=== PATIENT | male | born 1975 | race Caucasian/White ===

== ENCOUNTER 2021-08-28 18:16 | Inpatient (IN) | payer SELFPAY ==
[2021-08-28 18:26] VITALS: BP 142/98; PULSE 104; RESP 19; TEMP 36.6; O2SAT 97
--- NOTE | 2021-08-28 19:00 | ED.C_ITS ---
HPI - Psych General: Chief Complaint: Psychiatric Symptoms Stated Complaint: SI, ETOH Time Seen by Provider: 08/28/21 18:34 Source: patient and EMS Mode of arrival: EMS Limitations: no limitations History of Present Illness: 46-year-old male is here by EMS at this time with suicidal ideations. He was at a gas station intoxicated yelling and making a scene and had told people there that he wanted to jump off a bridge. Here he is denying anything at this time is difficult to get a history from him because he is not very cooperative and is quite intoxicated at this time. No worsening or improving factors. Associated symptoms: Reports depression Review of Systems Const: Denies: fever(s), chills, body aches or change in appetite Eyes: Denies: blurry vision or eye discomfort ENMT: Denies: throat pain or dental pain Card: Denies: chest pain Resp: Denies: dyspnea GI: Denies: abdominal pain, nausea, vomiting or diarrhea : Denies: dysuria Musc: Denies: neck pain or back pain Skin/Breast: Denies: rash Neuro: Denies: headache(s) Psych: Reports: depression Tye/Lymph: Denies: easy bruising All/Imm: Denies: urticaria Physical Exam Const: COMMON NORMALS: no acute distress, patient oriented x3 and healthy appearing GENERAL APPEARANCE: odor of alcohol detected HENMT: COMMON NORMALS: normocephalic and atraumatic HEAD & SCALP: normocephalic and atraumatic Eye: COMMON NORMALS: Equal, round and reactive pupils present and EOMs intact bilaterally PUPIL: Yes Equal, round and reactive pupils present Neck/C-Spine: COMMON NORMALS: full ROM and supple Chest: COMMONS NORMALS: normal inspection of the chest and normal palpation of entire chest wall Resp: COMMON NORMALS: normal respiratory effort, No retractions, No use of accessory muscles and clear to auscultation bilaterally AUSCULTATION: clear to auscultation bilaterally Cardio: COMMON NORMALS: regular rate, regular rhythm and No murmurs present (Cardio) RATE: regular rate RHYTHM: regular rhythm GI: COMMON NORMALS: Normal to inspection, nondistended, normoactive bowel sounds present, Soft to palpation, non-tender and no masses PALPATION: Yes Soft to palpation Extremity: COMMON NORMALS: normal to inspection and full ROM Neuro: COMMON NORMALS: patient oriented x3, moves all extremities and no focal motor deficits Psych: COMMON NORMALS: mental status grossly normal, Normal thought process present and cooperative THOUGHT PROCESS: Normal thought process present THOUGHT CONTENT: Yes Suicidality present Skin: COMMON NORMALS: no rashes or lesions noted and no wounds GENERAL SKIN EXAM: no rashes or lesions noted Course Vital Signs: Vital signs: Vital Signs Temperature 97.9 F 08/28/21 18:26 Pulse Rate 104 H 08/28/21 18:26 Respiratory Rate 19 H 08/28/21 18:26 Blood Pressure 142/98 08/28/21 18:26 Pulse Oximetry 97 08/28/21 18:26 MDM - Psych Medical Decision Making Patient presents here with suicidal ideation along with alcohol tox Acacian he is a plan to kill himself by jumping off a bridge patient was placed under 96- hour hold I spoke to psychiatrist will admit at this time. He has been stable while here. Lab Data : 08/28/21 20:30 08/28/21 20:30 Laboratory Results WBC 5.3 10^3/uL (4.0-10.0) 08/28/21 20:30 RBC 4.69 10^6/uL (4.1-5.3) 08/28/21 20:30 Hgb 14.9 g/dL (11.7-16.6) 08/28/21 20:30 Hct 44.4 % (42.0-52.0) 08/28/21 20:30 MCV 94.7 fl (80-94) H 08/28/21 20:30 MCH 31.8 pg (28.0-34.0) 08/28/21 20:30 MCHC 33.6 g/dL (30.0-36.0) 08/28/21 20:30 RDW 13.6 % (12.1-15.1) 08/28/21 20:30 Plt Count 238 10^3/cmm (130-400) 08/28/21 20:30 MPV 9.0 fL (7.4-10.4) 08/28/21 20:30 Neut % (Auto) 37.0 % 08/28/21 20:30 Lymph % (Auto) 40.0 % 08/28/21 20:30 Roberts % (Auto) 13.1 % 08/28/21 20:30 Eos % (Auto) 7.0 % 08/28/21 20:30 Baso % (Auto) 2.5 % 08/28/21 20:30 Neut # (Auto) 1.95 10^3/uL (1.8-7.7) 08/28/21 20:30 Lymph # (Auto) 2.1 10^3/uL (0.8-4.8) 08/28/21 20: Roberts # (Auto) 0.7 10^3/uL (0.2-0.9) 08/28/21 20: Eos # (Auto) 0.4 10^3/uL (0.0-0.8) 08/28/21 20: Baso # (Auto) 0.1 10^3/uL (0.0-0.1) 08/28/21: Nucleated RBC % (auto) 0 % 08/28/21: Nucleated RBCs # 0.0 /100WBC 08/28/21 20: Sodium 139 mmol/L (136-145) 08/28/21 20: Potassium 4.1 mmol/L (3.5-5.1) 08/28/21 20: Chloride 103 mmol/L (98-107) 08/28/21 20: Carbon Dioxide 26 mmol/L (22-29) 08/28/21 20:30 Anion Gap 14.1 (5-19) 08/28/21 20:30 BUN 6 mg/dL (6-20) 08/28/21: Creatinine 0.5 mg/dL (0.7-1.2) L 08/28/21 20:30 GFR Calculation 180.6 mL/min (90-130) H 08/28/21 20:30 Glucose 90 mg/dL (65-115) 08/28/21 20: Calculated Osmolality 285 mOsm/kg (285-295) 08/28/21: Calcium 8.5 mg/dL (8.5-10.5) 08/28/21 20:30 Total Bilirubin 0.2 mg/dL (0.15-1.2) 08/28/21 20: AST 100 U/L (0-40) H 08/28/21: ALT 27 U/L (0-41) 08/28/21 20:30 Alkaline Phosphatase 182 IU/L (40-130) H 08/28/21 20:30 Total Protein 7.5 g/dL (6.6-8.7) 08/28/21 20:30 Albumin 4.2 g/dL (3.5-5.2) 08/28/21 20:30 Globulin 3.3 g/dL (1.3-4.6) 08/28/21 20:30 Salicylates < 0.3 mg/dL (3-10) L 08/28/21 20:30 Urine Opiates Screen Negative ng/mL (Negative) 08/28/21 20:30 Acetaminophen < 5.0 ug/mL (10-30) L 08/28/21 20:30 Ur Barbiturates Screen Negative ng/mL (Negative) 08/28/21 20:30 Ur Phencyclidine Scrn Negative ng/mL (Negative) 08/28/21 20:30 Ur Amphetamines Screen Negative ng/mL (Negative) 08/28/21 20:30 U Benzodiazepines Scrn Negative ng/mL (Negative) 08/28/21 20:30 Urine Cocaine Screen Negative ng/mL (Negative) 08/28/21 20:30 U Marijuana (THC) Screen Positive ng/mL (Negative) H 08/28/21 20:30 Ethyl Alcohol 298 mg/dL (0-10) H 08/28/21 22:52 Discharge Plan Discharge Patient Disposition: Admitted As Inpatient Clinical Impression: Suicidal ideation, ETOH abuse Condition: Stable Coding Level of Care Code ED Tripoler for Ant Fwgerald Exam Comprehensive
[2021-08-28 20:41] LABS: Basophils # 0.1 10^3/uL (0.0-0.1); Basophils % 2.5 %; Eosinophils # 0.4 10^3/uL (0.0-0.8); Hematocrit 44.4 % (42.0-52.0); Hemoglobin 14.9 g/dL (11.7-16.6); Lymphocytes # 2.1 10^3/uL (0.8-4.8); Mean Corpuscular HGB Conc 33.6 g/dL (30.0-36.0); Mean Corpuscular Hemoglobin 31.8 pg (28.0-34.0); Mean Corpuscular Volume 94.7 fl (80-94); Monocytes # 0.7 10^3/uL (0.2-0.9); Monocytes % 13.1 %; Neutrophils # 1.95 10^3/uL (1.8-7.7); Nucleated Red Blood Cells % 0 %; Platelet Count 238 10^3/cmm (130-400); Red Blood Count 4.69 10^6/uL (4.1-5.3); Red Cell Distribution Width 13.6 % (12.1-15.1); White Blood Count 5.3 10^3/uL (4.0-10.0)
[2021-08-28 21:05] LABS: Amphetamines Screen Urine Negative (Negative); Barbiturates Screen Urine Negative (Negative); Benzodiazepines Screen Urine Negative (Negative); Cocaine Screen Urine Negative (Negative); Opiate Screen Urine Negative (Negative); PCP Screen Urine Negative (Negative); THC Screen Urine Positive (Negative)
[2021-08-28 21:10] LABS: Alanine Aminotransferase 27 U/L (0-41); Albumin Level 4.2 g/dL (3.5-5.2); Alkaline Phosphatase 182 IU/L (40-130); Anion Gap 14.1 (5-19); Aspartate Amino Transferase 100 U/L (0-40); Blood Urea Nitrogen 6 mg/dL (6-20); Calcium 8.5 mg/dL (8.5-10.5); Carbon Dioxide 26 mmol/L (22-29); Chloride 103 mmol/L (98-107); Globulin 3.3 g/dL (1.3-4.6); Glomerular Filtration Rate 180.6 mL/min (90-130); Glucose 90 mg/dL (65-115); Osmolality Calculated 285 mOsm/kg (285-295); Potassium 4.1 mmol/L (3.5-5.1); Sodium 139 mmol/L (136-145); Total Bilirubin 0.2 mg/dL (0.15-1.2); Total Protein 7.5 g/dL (6.6-8.7)
[2021-08-28 21:13] LABS: Acetaminophen < 5.0 ug/mL (10-30); Salicylate < 0.3 mg/dL (3-10)
[2021-08-28 21:14] LABS: Alcohol Level 357 mg/dL (0-10)
[2021-08-28 23:15] LABS: Alcohol Level 298 mg/dL (0-10)
[2021-08-29 01:21] VITALS: RESP 17
[2021-08-29] MEDS: nicotine 21 mg Patch 1 PATCH TRANSDERMA (03:38)
[2021-08-29] MEDS: multivitamin therapeutic Tablet 1 TAB PO ×2 (03:38→16:07)
[2021-08-29 04:29] LABS: Alcohol Level 149 mg/dL (0-10)
[2021-08-29 05:25] VITALS: BP 139/77; PULSE 90; RESP 14; O2SAT 96
[2021-08-29 13:51] VITALS: BP 172/88; PULSE 76; RESP 17; TEMP 37.1; O2SAT 98
[2021-08-29 14:00] VITALS: BP 142/74; PULSE 78; RESP 17; TEMP 37.1; O2SAT 98
[2021-08-29] MEDS: ondansetron 4 MG Tablet PO (14:11)
[2021-08-29] MEDS: LORazepam 2 mg Tablet PO ×3 (14:11→16:29)
--- NOTE | 2021-08-29 15:36 | PC.NURSE ---
patient CIWA at 1407 was 15, CIWA now still 13. Patient is still visibly shaking, tremors, sweaty, headache, denies hallucinations.
[2021-08-29] MEDS: thiamine 100 mg Tablet PO (16:07)
[2021-08-29] MEDS: acetaminophen 325 mg Tablet 650 MG PO (16:16)
[2021-08-29] MEDS: chlordiazePOXIDE 25 mg Capsule 50 MG PO (16:44)
--- NOTE | 2021-08-29 17:42 | PC.NURSE ---
Patient resting with eyes closed.
[2021-08-29 22:00] VITALS: BP 117/71; PULSE 78; RESP 16; TEMP 37.1; O2SAT 97
[2021-08-30 06:00] VITALS: BP 96/65; PULSE 66; RESP 18; TEMP 36.9; O2SAT 98
--- NOTE | 2021-08-30 08:24 | PC.NURSE ---
Am assessment patient is up ambulating in hallway. He is alert and oriented, able to state name and day as well as month and year. He denies SI, HI, and hallucinations. He is noted to have moderate tremors with anxiety. He reports nausea that is mild. HR noted to be tachycardia at 95 apically. Skin is warm and dry. Lungs clear with breathing even and nonlabored. Bowel sounds active in all quads. Denies pain with urination.
[2021-08-30] MEDS: chlordiazePOXIDE 25 mg Capsule 50 MG PO ×3 (09:09→17:40)
[2021-08-30] MEDS: multivitamin therapeutic Tablet 1 TAB PO (09:09)
[2021-08-30] MEDS: folic acid 1 mg Tablet PO (09:09)
[2021-08-30] MEDS: thiamine 100 mg Tablet PO (09:09)
[2021-08-30] MEDS: nicotine 21 mg Patch 1 PATCH TRANSDERMA (11:09)
--- NOTE | 2021-08-30 11:21 | NPU.GN ---
[facility] Group Topic: Thought Process General Mood of Group: Jace did attend and participate in group. His hygiene was poor. Client has severe shaking. This contract technical writer aided the client with completing the [facility] new patient packet for [facility] [employer]. Client stated that he wants help with his severe anxiety and wants to quit drinking but anxiety is a causing factor to his alcohol intake. This contract technical writer advised the client to discuss this with the doctor that they can prescribe him something that will help with his anxiety.
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
[2021-08-30] MEDS: fluoxetine 20 mg Capsule PO (11:58)
[2021-08-30 14:00] VITALS: BP 155/104; PULSE 112; RESP 20; O2SAT 99
[2021-08-30] MEDS: acetaminophen 325 mg Tablet 650 MG PO ×2 (14:09→21:02)
[2021-08-30] MEDS: ondansetron 4 MG Tablet PO (14:10)
[2021-08-30] MEDS: hyDROXYzine 25 mg Capsule 50 MG PO (14:10)
[2021-08-30 14:16] LABS: Glucose Point of Care 105 mg/dL (70-110)
[2021-08-30] MEDS: nicotine 2 mg Gum BUCCAL (17:20)
[2021-08-30] MEDS: chlordiazePOXIDE 25 mg Capsule PO (21:02)
[2021-08-30 22:00] VITALS: BP 122/74; PULSE 67; RESP 16; TEMP 36.8; O2SAT 97
--- NOTE | 2021-08-31 02:52 | PC.NURSE ---
2102 Patient scored 15 on his CIWA. Per protocol Librium 25 mg po given for symptoms of withdrawal. Medication was effective as the patient has been able to rest.
[2021-08-31] MEDS: acetaminophen 325 mg Tablet 650 MG PO ×4 (03:07→20:07)
[2021-08-31] MEDS: chlordiazePOXIDE 25 mg Capsule PO ×2 (03:07→20:04)
--- NOTE | 2021-08-31 04:49 | PC.NURSE ---
0307 Patient is at the nurse's station requesting Librium related to his anxiety and other withdrawal symptoms. Librium 25 mg po given per protocol. Patient also c/o a headache. Tylenol 650 mg po given. Both medications were effective. The patient is resting quietly.
[2021-08-31 06:00] VITALS: BP 125/73; PULSE 79; RESP 16; TEMP 36.6; O2SAT 95
[2021-08-31] MEDS: multivitamin therapeutic Tablet 1 TAB PO ×2 (08:12)
[2021-08-31] MEDS: folic acid 1 mg Tablet PO (08:12)
[2021-08-31] MEDS: fluoxetine 20 mg Capsule PO (08:12)
[2021-08-31] MEDS: thiamine 100 mg Tablet PO (08:13)
[2021-08-31] MEDS: nicotine 2 mg Gum BUCCAL ×2 (08:16→09:19)
--- NOTE | 2021-08-31 08:16 | W.PM.NPUPNS ---
Subjective NPU Subjective: Interval history: He only required 1 dose of Librium yesterday. He got another dose at 4 AM this morning. He said that he is somewhat tremulous at this point. He does not think that the Librium works as well as the Ativan did but agreed to stick with the Librium for now because it has a long half-life. He felt that he might have been a little dizzy after he took the Prozac yesterday at noon but understands it could also have been withdrawal. Mental Status Exam MSE Comments: This is a thin 46-year-old male who appears approximately his stated age and is in no acute distress. He is dressed in hospital scrubs with a full barros. His grooming is fair. psychomotor activity increased. He is tremulous from alcohol withdrawal Speech is at a regular rate and rhythm, normal volume, good articulation, not pressured. Alert, oriented X3 Attention and concentration are mildly diminished. Memory is intact Mood is depressed. Affect is moderately dysphoric. Thought process is logical and goal-directed. Thought content: Denies auditory and visual hallucinations. No delusions or paranoia are noted. He had suicidal ideation prior to admission but denies suicidal ideation at this time. He denies any homicidal ideation. Fund of knowledge is about average. Insight and judgment appear to be fair. Impulse control is impaired. Cognition: Patient Appearance: Disheveled/Poor Hygiene Level of Consciousness: Appropriate and Follows Commands Patient Cognition Impaired: Yes (alcohol) Ability to Follow Directions: Excellent Patient Orientation (long list): Person, Place, Time, Name and Birthday Comprehension Ability: No Impairment Hallucination Type: None Delusion Description: Not Present Thought Process: Circumstantial Affect: Affect Description: Appropriate and Flat Behavior: Patient Behavior: Appropriate and Cooperative Speech Pattern: Appropriate and Clear Vitals/I&O/Wt Last Vital Signs Temp 97.8 F 08/31/21 06:00 Pulse 79 08/31/21 06:00 Resp 16 08/31/21 06:00 BP 125/73 08/31/21 06:00 Pulse Ox 95 08/31/21 06:00 Data NPU : 08/28/21 20:30 08/28/21 20:30 A&P Assessment and plan (1) ETOH abuse: Status: Acute (2) Suicidal ideation: Status: Acute (3) Anxiety: Status: Acute (4) Depression: Status: Acute Plan This is a 46-year-old male who reports increasing anxiety depression and alcohol abuse. He has been abusing alcohol for over 20 years on a daily basis. Plan: 1. Continue current medication. We will continue on the CIWA protocol using Librium because Ativan did not seem to have much of an effect. We will start Prozac 20 mg daily 2. Continue every 15 minute checks for safety. 3. Encourage individual, group and milieu therapies. 4. Encourage sober living treatment after discharge at the highest level of care to which he is willing to commit. 5. We will monitor for safety for himself in the community prior to discharge. Involuntary Hold Information 96 Hour Hold: 96 Hour Involuntary Admission: Yes 96 Hour Hold Ending Date: 09/01/21 96 Hour Hold Ending Time: 20:06 Attestations NPU Medical Necessity Statement*: Inpatient hospitalization is medically necessary and the clinically appropriate intervention at this time. We will initiate medications and make changes as indicated. Coding Level of Care Code Acute Senior Electronics Design Engineer for Ant Blackman Diagnoses ETOH abuse F10.10 Suicidal ideation R45.851 Anxiety F41.9 Depression F32.A
[2021-08-31] MEDS: hyDROXYzine 25 mg Capsule 50 MG PO (09:43)
[2021-08-31] MEDS: OLANZapine 5 mg ODT PO (10:46)
[2021-08-31 13:30] VITALS: BP 123/84; PULSE 98; RESP 24; TEMP 36.1; O2SAT 99
[2021-08-31 20:02] VITALS: BP 141/90; PULSE 74; RESP 17; TEMP 36.6; O2SAT 98
[2021-09-01 06:00] VITALS: BP 108/66; PULSE 76; RESP 18; TEMP 36.8; O2SAT 97
[2021-09-01] MEDS: chlordiazePOXIDE 25 mg Capsule PO (06:24)
[2021-09-01] MEDS: acetaminophen 325 mg Tablet 650 MG PO (06:26)
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
[2021-09-01] MEDS: folic acid 1 mg Tablet PO (08:48)
[2021-09-01] MEDS: multivitamin therapeutic Tablet 1 TAB PO (08:48)
[2021-09-01] MEDS: nicotine 2 mg Gum BUCCAL (08:48)
[2021-09-01] MEDS: fluoxetine 20 mg Capsule PO (08:48)
[2021-09-01] MEDS: thiamine 100 mg Tablet PO (08:48)
[2021-09-01 09:01] VITALS: BP 108/66; PULSE 76; RESP 18; TEMP 36.8; O2SAT 97
== END 2021-09-01 09:30 | disposition home or self-care (01) | DRG 881 ==
LOC: ER 23:25 → ER IP 08-29 14:00 → NP 08-29 14:00
PROVIDERS: Family Medicine; Admitting Provider Psychiatry & Neurology Psychiatry; Emergency Provider Emergency Medicine; Visit Provider Psychiatry & Neurology Psychiatry
DX: F32.A Depression, unspecified (principal); R45.851 Suicidal ideations; F10.129 Alcohol abuse with intoxication, unspecified; Y90.9 Presence of alcohol in blood, level not specified; F41.9 Anxiety disorder, unspecified
CPT/HCPCS: 36415; 36416; 80053; 80306; 80307; 82962; 85025; 96372; 97150; 97165; 99285; J3411; Q0162